=== PATIENT | female | born 1960 | race Caucasian/White ===

== ENCOUNTER 2016-12-04 10:11 | Emergency (ER) | payer BC ==
[2016-12-04 10:24] VITALS: BP 143/71
--- NOTE | 2016-12-04 11:23 | ER Document Report ---
ED General - General Chief Complaint: Skin Problem Stated Complaint: POSSIBLE CYST Time Seen by Provider: 12/04/16 11:06 Mode of Arrival: Ambulatory Information source: Patient Notes: Patient presents to the emergency department with an abscess to the left side of her posterior neck. Patient reports she has had a cyst there for years. She reports she has seen a test engineering intern about it years ago. Within the past couple of days the area has become red, swollen and more painful. Denies other symptoms such as fever vomiting diarrhea. Denies history of MRSA. Pt declines pain medication. TRAVEL OUTSIDE OF THE [place] IN LAST 30 DAYS: No - HPI Onset: Other - last few days increased pain, swelling, redness Onset/Duration: Worse Quality of pain: Achy Severity: Mild Pain Level: 1 Associated symptoms: None Exacerbated by: Denies Relieved by: Denies Similar symptoms previously: No Recently seen / treated by doctor: No - Related Data Allergies/Adverse Reactions: fexofenadine HCl [From Juliette] Allergy (Severe, Verified 12/16/13 11:16) Hives, SOB bupropion HCl [From Wellbutrin] Allergy (Unknown, Verified 12/16/13 11:16) Past Medical History - General Information source: Patient - Social History Smoking Status: Unknown if Ever Smoked Cigarette use (# per day): No Frequency of alcohol use: None Drug Abuse: None Lives with: Family Family History: Reviewed & Not Pertinent Patient has suicidal ideation: No Patient has homicidal ideation: No - Past Medical History Cardiac Medical History: Reports: Hx Hypercholesterolemia, Hx Hypertension Pulmonary Medical History: Reports: Hx Bronchitis Denies: Hx Tuberculosis Neurological Medical History: Endocrine Medical History: Reports: Hx Diabetes Mellitus Type 2 Renal/ Medical History: Denies: Hx Peritoneal Dialysis GI Medical History: Reports: Hx Gastroesophageal Reflux Disease Musculoskeltal Medical History: Reports Hx Arthritis Psychiatric Medical History: Reports: Hx Depression Past Surgical History: Reports: Hx Abdominal Surgery - GERNIA, Hx Cholecystectomy - January 2011, Hx Orthopedic Surgery - c5-c7, R wrist - Immunizations Hx Diphtheria, Pertussis, Tetanus Vaccination: No Hx Pneumococcal Vaccination: 04/07/05 Review of Systems - Review of Systems Notes: Review HPI for review of systems., All other systems negative Physical Exam - Vital signs Vitals: Temp Pulse Resp BP Pulse Ox 98.9 F 90 16 143/71 H 94 12/04/16 10:12/04/16 10:12/04/16 10:12/04/16 10:12/04/16 10:22 - Notes Notes: PHYSICAL EXAMINATION: GENERAL: Well-appearing and in no acute distress HEAD: Atraumatic, normocephalic. EYES: Pupils equal round, extraocular movements intact, sclera anicteric, conjunctiva are normal. ENT: nares patent, oropharynx clear without exudates. Moist mucous membranes. NECK: Normal range of motion, supple without lymphadenopathy LUNGS: CTAB and equal. No wheezes rales or rhonchi. HEART: Regular rate and rhythm without murmurs EXTREMITIES: Normal range of motion NEUROLOGICAL: Cranial nerves grossly intact. Normal sensory/motor exams. PSYCH: Normal mood, normal affect. SKIN: Warm, Dry, normal turgor, abscess- left posterior neck with erythema, swelling, ttp, fluctuant 3 cm oval - Abdominal Distension: No: No distension, Distended, Tympanitic, Fluid wave, Distended bladder, Other Adult front & back diagram: 1 - abscess ~ 3 cm oval with erythema, swelling, ttp Course - Re-evaluation Re-evalutation: 12/04/16 11:22 Patient instructed on plan of care. Patient instructed on medications Keflex and Septra. She verbalizes no allergies to these medications. She declined pain medication. 12/04/16 12:22 No drainage obtained from site. Pt was instructed on this. Wound culture placed into incision. Patient instructed on the importance of follow-up with her primary care provider for recheck of the site. Patient is a diabetic , she verbalized understanding. - Vital Signs Vital signs: Temp Pulse Resp BP Pulse Ox 98.9 F 90 16 143/71 H 94 12/04/16 10:12/04/16 10:12/04/16 10:12/04/16 10:22 12/04/16 10:22 Procedures - Incision and Drainage Neck Type: Simple Anesthetic type: 1% Lidocaine I&D procedure: Shurclens applied Incision Method: Incision made by scalpel Amount/type of drainage: no drainage obtained Notes: 12/04/16 12:22 t shaped incision made, area probed, no drainage obtained Discharge - Discharge Clinical Impression: Abscess, Elevated blood pressure reading Condition: Stable Disposition: HOME, SELF-CARE Instructions: Abscess ([facility]), Cephalexin ([facility]), Post Incision and Drainage, Trimethoprim-Sulfa ([facility]), Oral Narcotic Medication ([facility]) Additional Instructions: *You have been treated for an abscess with incision and drainage *Take medication as prescribed *Monitor the site for signs of increasing infection such as increasing pain, redness, swelling, warmth *Wash the site twice daily as discussed *Follow up with a primary care provider within 3 days for recheck. *Return to ED for signs of increasing infection, worsening condition, changes, needs Monitor your blood pressure. Your blood pressure was elevated today. This may be because you were anxious, in pain or because you need medication. It is important to follow up with your primary care provider for full evaluation. Prescriptions: Cephalexin [Cephalexin 250 MG Tablet] 1 tab PO QID #20 tablet Oxycodone HCl/Acetaminophen [Percocet 5-325 mg Tablet] 1 - 2 tab PO ASDIR PRN # 15 tablet PRN Reason: Sulfamethoxazole/Trimethoprim [Bactrim Ds Tablet] 1 each PO BID #20 tablet Forms: Elevated Blood Pressure Referrals: BERE CORTEZ MD [Primary Care Provider] - Follow up in 3-5 days (call today for a follow up appointment this week)
== END 2016-12-04 12:26 | disposition home or self-care (01) ==
LOC: ER 10:11
PROC: 0H94XZZ Drainage of Neck Skin, External Approach (ICD-10-PCS; principal; 2016-12-04)
DX: L02.11 Cutaneous abscess of neck (principal); E78.00 Pure hypercholesterolemia, unspecified; I10 Essential (primary) hypertension; E11.9 Type 2 diabetes mellitus without complications; K21.9 Gastro-esophageal reflux disease without esophagitis
CPT/HCPCS: 87070; 87075; 87205; 99283

== ENCOUNTER 2016-12-05 14:03 | Inpatient (IN) | payer BC ==
[2016-12-05] MEDS ORDERED: NORMAL SALINE 1000 ML 1,000 ML IV ONE ×2 (15:38→16:03)
--- NOTE | 2016-12-05 15:43 | ER Document Report ---
ED Medical Screen (RME) - General Chief Complaint: Fever Stated Complaint: FEVER Time Seen by Provider: 12/05/16 15:19 Mode of Arrival: Wheelchair Information source: Patient Notes: This is a 55-year-old female with multiple medical problems to include diabetes who presents for fever and chills. Of note she was seen in the ER yesterday for a skin abscess to her posterior neck. She had an I&D attempted but no purulence was drained. She was sent home with Keflex and Bactrim with which she reports compliance. She reports fevers and chills this morning with a temperature at home of 102.5. She has no prior history of skin infection or MRSA. I have greeted and performed a rapid initial assessment of this patient. A comprehensive ED assessment and evaluation of the patient, analysis of test results and completion of the medical decision making process will be conducted by additional ED providers. TRAVEL OUTSIDE OF THE [place] IN LAST 30 DAYS: No - Related Data Allergies/Adverse Reactions: fexofenadine HCl [From Juliette] Allergy (Severe, Verified 12/05/16 15:14) Hives, SOB bupropion HCl [From Wellbutrin] Allergy (Unknown, Verified 12/05/16 15:14) Past Medical History - Past Medical History Cardiac Medical History: Reports: Hx Hypercholesterolemia, Hx Hypertension Pulmonary Medical History: Reports: Hx Bronchitis Denies: Hx Tuberculosis Neurological Medical History: Endocrine Medical History: Reports: Hx Diabetes Mellitus Type 2 Renal/ Medical History: Denies: Hx Peritoneal Dialysis GI Medical History: Reports: Hx Gastroesophageal Reflux Disease Musculoskeltal Medical History: Reports Hx Arthritis Psychiatric Medical History: Reports: Hx Depression Past Surgical History: Reports: Hx Abdominal Surgery - GERNIA, Hx Cholecystectomy - January 2011, Hx Orthopedic Surgery - c5-c7, R wrist - Immunizations Hx Diphtheria, Pertussis, Tetanus Vaccination: No Physical Exam - General Notes: Ill-appearing, pleasant and conversant - Respiratory Respiratory status: No respiratory distress, Tachypnea Breath sounds: Normal. No: Rales, Rhonchi, Wheezing Chest palpation: Normal - Cardiovascular Rhythm: Tachycardia
[2016-12-05] MEDS ORDERED: VANCOMYCIN HCL INJ 1000 MG VIAL IV ONE (16:00)
[2016-12-05] MEDS ORDERED: PIPERACILLIN/TAZOBACTAM 3.375 GM VIAL IV ONE (16:01)
[2016-12-05] MEDS ORDERED: ACETAMINOPHEN 325 MG TABLET PO ONE (16:02)
[2016-12-05 16:27] LABS: HEMATOCRIT 36.4 % (36.0-47.0); HEMOGLOBIN 11.5 g/dL (12.0-15.5); HGB HCT DIFFERENCE -1.9; MEAN CORPUSCULAR HEMOGLOBIN 24.1 pg (27.0-33.4); MEAN CORPUSCULAR HGB CONC 31.5 g/dL (32.0-36.0); MEAN CORPUSCULAR VOLUME 77 fl (80-97); RED BLOOD COUNT 4.75 10^6/uL (3.72-5.28); RED CELL DISTRIBUTION WIDTH 15.5 % (11.5-14.0); WHITE BLOOD COUNT 11.8 10^3/uL (4.0-10.5)
--- NOTE | 2016-12-05 16:30 | RADIOLOGY REPORT (SQ) ---
EXAM DESCRIPTION: CHEST SINGLE VIEW COMPLETED DATE/TIME: 12/05/2016 4:15 pm REASON FOR STUDY: fever COMPARISON: 12/15/2014. EXAM PARAMETERS: NUMBER OF VIEWS: One view. TECHNIQUE: Single frontal radiographic view of the chest acquired. RADIATION DOSE: NA LIMITATIONS: None. FINDINGS: LUNGS AND PLEURA: Elevated right hemidiaphragm, unchanged. No opacities, masses or pneumo thorax. No pleural effusion. MEDIASTINUM AND HILAR STRUCTURES: No masses. Contour normal. HEART AND VASCULAR STRUCTURES: Heart normal in size. Normal vasculature. BONES: No acute findings. HARDWARE: Hardware in the cervical spine. OTHER: No other significant finding. IMPRESSION: NO ACUTE RADIOGRAPHIC FINDING IN THE CHEST. TECHNICAL DOCUMENTATION: JOB ID: [id number]
[2016-12-05 16:32] LABS: VENOUS BLOOD BASE EXCESS 0.7 mmol/L; VENOUS BLOOD HCO3 25.3 mmol/L (20-32); VENOUS BLOOD PCO2 40.1 mmHg (35-63); VENOUS BLOOD PH 7.42 (7.30-7.42)
[2016-12-05 16:33] LABS: PROTHROMBIN TIME 13.1 SEC (11.4-15.4)
--- NOTE | 2016-12-05 16:42 | ER Document Report ---
ED Fever - General Chief Complaint: Fever Stated Complaint: FEVER Time Seen by Provider: 12/05/16 15:19 Mode of Arrival: Wheelchair Notes: The patient is a 55-year-old female, past medical history diabetes, presents with increasing redness and fever on her left upper back. She was seen in the emergency room yesterday for an abscess and an I&D was attempted with only bloody return. Started on Bactrim and Keflex and said that she was taking them. She denies shortness of breath, cough, urinary symptoms, abdominal pain, flank pain, chest pain or vomiting. TRAVEL OUTSIDE OF THE [place] IN LAST 30 DAYS: No - Related Data Allergies/Adverse Reactions: fexofenadine HCl [From Juliette] Allergy (Severe, Verified 12/05/16 15:14) Hives, SOB bupropion HCl [From Wellbutrin] Allergy (Unknown, Verified 12/05/16 15:14) Past Medical History - General Information source: Patient - Social History Smoking Status: Never Smoker Family History: Reviewed & Not Pertinent Patient has suicidal ideation: No Patient has homicidal ideation: No - Past Medical History Cardiac Medical History: Reports: Hx Hypercholesterolemia, Hx Hypertension Pulmonary Medical History: Reports: Hx Bronchitis Denies: Hx Tuberculosis Neurological Medical History: Endocrine Medical History: Reports: Hx Diabetes Mellitus Type 2 Renal/ Medical History: Denies: Hx Peritoneal Dialysis GI Medical History: Reports: Hx Gastroesophageal Reflux Disease Musculoskeltal Medical History: Reports Hx Arthritis Psychiatric Medical History: Reports: Hx Depression Past Surgical History: Reports: Hx Abdominal Surgery - GERNIA, Hx Cholecystectomy - January 2011, Hx Orthopedic Surgery - c5-c7, R wrist - Immunizations Hx Diphtheria, Pertussis, Tetanus Vaccination: No Hx Pneumococcal Vaccination: 04/07/05 Review of Systems - Review of Systems Notes: REVIEW OF SYSTEMS: CONSTITUTIONAL: +fevers, +chills EENT: -eye pain, -difficulty swallowing, -nasal congestion CARDIOVASCULAR:-chest pain, -syncope. RESPIRATORY: -cough, -SOB GASTROINTESTINAL: -abdominal pain, +nausea, -vomiting, -diarrhea GENITOURINARY: -dysuria, -hematuria MUSCULOSKELETAL: -back pain, -neck pain SKIN: +rash on back HEMATOLOGIC: -easy bruising or bleeding. LYMPHATIC: -swollen, enlarged glands. NEUROLOGICAL: -altered mental status or loss of consciousness, -headache, - neurologic symptoms PSYCHIATRIC: -anxiety, -depression. ALL OTHER SYSTEMS REVIEWED AND NEGATIVE. Physical Exam - Vital signs Vitals: Resp BP Pulse Ox 18 130/74 H 94 12/05/16 16:31 12/05/16 16:31 12/05/16 16:31 - Notes Notes: PHYSICAL EXAMINATION: GENERAL: Ill-appearing HEAD: Atraumatic, normocephalic. EYES: Pupils equal round and reactive to light, extraocular movements intact, sclera anicteric, conjunctiva are normal. ENT: nares patent, oropharynx clear without exudates. Moist mucous membranes. NECK: Normal range of motion, supple without lymphadenopathy LUNGS: Breath sounds clear to auscultation bilaterally and equal. No wheezes rales or rhonchi. HEART: Regular rhythm, tachycardia ABDOMEN: Soft, nontender, normoactive bowel sounds. No guarding, no rebound. No masses appreciated. EXTREMITIES: Normal range of motion, no pitting or edema. No cyanosis. NEUROLOGICAL: Cranial nerves grossly intact. Normal speech, normal gait. Normal sensory and motor exams. PSYCH: Normal mood, normal affect. SKIN: 1 cm abscess over left upper back with 7 cm surrounding erythema Course - Re-evaluation Re-evalutation: Patient failed outpatient antibiotics for her cellulitis and is now septic. Her blood pressure is remaining in the 130's/70's and her lactate is only 2.3. Broad-spectrum antibiotics started. Bedside US shows 1cm x1cm abscess with surrounding soft-tissue cobblestoning, indicative of cellulitis. Offered patient another I&D, but she is declining at this time due to the small size of the abscess. Pt requires Inpatient Admission for IV antibiotics, IVF and further evaluation and treatment. 12/05/16 17:[address] Fields and will admit patient as Inpatient to [facility]. - Vital Signs Vital signs: Temp Pulse Resp BP Pulse Ox 16 134/70 H 95 12/05/16 17:01 12/05/16 17:01 12/05/16 17:01 - Laboratory Result Diagrams: 12/05/16 16:06 12/05/16 16:06 Laboratory results interpreted by me: 12/05/16 12/05/16 12/05/16 16:06 16:06 16:06 WBC 11.8 H Hgb 11.5 L MCV 77 L MCH 24.1 L MCHC 31.5 L RDW 15.5 H Seg Neuts % (Manual) 90 H Band Neutrophils % 2 L Lymphocytes % (Manual) 4 L Monocytes % (Manual) 2 L Abs Neuts (Manual) 10.9 H Glucose 197 H Lactic Acid 2.3 H - Diagnostic Test Radiology reviewed: Image reviewed, Reports reviewed Radiology results interpreted by me: CXR: NAD Discharge - Discharge Clinical Impression: Cellulitis and abscess of trunk Sepsis Qualifiers: Sepsis type: sepsis due to unspecified organism Qualified Code(s): A41.9 - Sepsis, unspecified organism Condition: Serious Disposition: ADMITTED INPATIENT Admitting Provider: Mary Beth Fields Unit Admitted: Telemetry
[2016-12-05 16:49] LABS: BAND NEUTROPHILS % (MANUAL) 2 % (3-5); BASOPHILS % (MANUAL) 0 % (0-2); EOSINOPHILS % (MANUAL) 2 % (0-6); LYMPHOCYTES % (MANUAL) 4 % (13-45); TOTAL CELLS COUNTED 100; TOXIC VACUOLATION PRESENT
[2016-12-05 16:50] LABS: ANISOCYTOSIS 1+; HYPOCHROMASIA SLIGHT; MICROCYTOSIS 1+; POLYCHROMASIA SLIGHT; ROULEAUX 1+
[2016-12-05 16:51] LABS: ALANINE AMINOTRANSFERASE 40 U/L (9-52); ALBUMIN 4.2 g/dL (3.5-5.0); ALKALINE PHOSPHATASE 106 U/L (38-126); ANION GAP 11 (5-19); ASPARTATE AMINO TRANSFERASE 32 U/L (14-36); BILIRUBIN,DIRECT 0.3 mg/dL (0.0-0.4); BILIRUBIN,TOTAL 0.7 mg/dL (0.2-1.3); BLOOD UREA NITROGEN 14 mg/dL (7-20); CALCIUM 9.5 mg/dL (8.4-10.2); CARBON DIOXIDE 25 mmol/L (22-30); CHLORIDE 104 mmol/L (98-107); CREATININE RESULT 0.78 mg/dL (0.52-1.25); GLUCOSE 197 mg/dL (75-110); POTASSIUM 4.4 mmol/L (3.6-5.0); SODIUM 140.3 mmol/L (137-145); TOTAL PROTEIN 7.5 g/dL (6.3-8.2)
[2016-12-05] MEDS ORDERED: IBUPROFEN 600 MG TABLET PO ONE (17:33)
[2016-12-05 18:03] LABS: APPEARANCE,URINE CLEAR; BILIRUBIN,URINE NEGATIVE (NEGATIVE); GLUCOSE, URINE >=500 mg/dL (NEGATIVE); KETONES,URINE NEGATIVE (NEGATIVE); LEUKOCYTE ESTERASE,URINE NEGATIVE (NEGATIVE); NITRITE,URINE NEGATIVE (NEGATIVE); PROTEIN,URINE NEGATIVE (NEGATIVE); URINE SPECIFIC GRAVITY 1.043; UROBILINOGEN,URINE NEGATIVE mg/dL (<2.0)
[2016-12-05] MEDS ORDERED: NORMAL SALINE 1000 ML 1,000 ML IV PRN (18:22)
[2016-12-05] MEDS ORDERED: ONDANSETRON HCL INJ/PF 4 MG/2 ML SDV IV PRN (18:22)
[2016-12-05] MEDS ORDERED: PIPERACILLIN/TAZOBACTAM 3.375 GM VIAL IV SCH (18:30)
[2016-12-05] MEDS ORDERED: DEXTROSE 50%-WATER 25 GM/50 ML DISP.SYRIN IV PRN ×2 (18:30)
[2016-12-05] MEDS ORDERED: DEXTROSE 40% GEL 15 GM TUBE PO PRN ×2 (18:30)
[2016-12-05] MEDS ORDERED: GLUCAGON,HUMAN RECOMB 1 MG INJ IM PRN (18:30)
[2016-12-05] MEDS ORDERED: (PENDING PHARMACY ID) (Exenatide Microspheres [Bydureon Pen] 2 MG) SQ SCH (18:45)
--- NOTE | 2016-12-05 18:46 | PDOC H&P ---
History of Present Illness Admission Date/PCP: 12/05/16 17:41 BERE CORTEZ MD Patient complains of: Fever and chills History of Present Illness: ISABEL RICK is a 55 year old female, with history of diabetes presents to the hospital because of fever and chills of 1 day duration. Patient noted and knot on the back of her neck close to the shoulder on the left side about 4-5 days ago with associated pain and discomfort. 2 days prior to admission the size of the knot or induration increased. Patient was concerned therefore she went to the emergency room yesterday where an incision and drainage was performed but no significant fluid was obtained. The patient was discharged home on Bactrim and Keflex and upon waking up this morning the patient has more discomfort pain and swelling with associated chills and fever. The patient went back to the emergency room, lactic acid level was elevated, temperature of 102.1, redness reportedly increased. Patient was given vancomycin and Zosyn and was referred for admission. Patient denies any chest congestion or coughing, no diarrhea, no vaginal discharge or bleeding, no dysuria urgency or frequency. No other rash reported. Past Medical History Cardiac Medical History: Reports: Hyperlipidema, Hypertension Pulmonary Medical History: Reports: Bronchitis Denies: Tuberculosis Neurological Medical History: Endocrine Medical History: Reports: Diabetes Mellitus Type 2 GI Medical History: Reports: Gastroesophageal Reflux Disease Musculoskeltal Medical History: Reports: Arthritis Psychiatric Medical History: Reports: Depression Hematology: Denies: Anemia Past Surgical History Past Surgical History: Reports: Cholecystectomy - January 2011, Orthopedic Surgery - c5-c7, R wrist, low back surgery for discitis Social History Information Source: Patient Smoking Status: Never Smoker Frequency of Alcohol Use: None Hx Recreational Drug Use: No Drugs: None Hx Prescription Drug Abuse: No - Advance Directive Resuscitation Status: Full Code Family History Family History: CAD, DM, Hypertension Parental Family History Reviewed: Yes Children Family History Reviewed: Yes Sibling(s) Family History Reviewed.: Yes Medication/Allergy Home Medications: Amlodipine Besylate [Norvasc 5 mg Tablet] 5 mg PO DAILY 07/31/11 Metformin HCl [Glucophage 500 Mg Tablet] 1,000 mg PO BID 07/31/11 Simvastatin [Zocor] 20 mg PO QHS 07/31/11 Metoprolol Succinate [Toprol Xl 25 mg Tab.sr] 25 mg PO BID 08/01/11 Losartan Potassium [Cozaar 25 Mg Tablet] 100 mg PO DAILY 02/05/12 Ranitidine HCl [Zantac 300 mg Tablet] 300 mg PO QHS 02/05/12 Aripiprazole [Abilify 10 mg Tablet] 10 mg PO DAILY 12/05/16 Budesonide/Formoterol Fumarate [Symbicort Hfa 160-4.5 Mcg Inhaler 6 gm] 2 puff IH Q12 12/05/16 Canagliflozin [Invokana] 300 mg PO DAILY 12/05/16 Exenatide Microspheres [Bydureon Pen] 2 mg SQ Q7D 12/05/16 Glimepiride [Amaryl 4 mg Tablet] 4 mg PO BID 12/05/16 Insulin Degludec [Tresiba Flextouch U-100] 28 unit SQ QHS 12/05/16 Levalbuterol Tartrate [Xopenex Hfa] 1 - 2 puff IH 6XD PRN 12/05/16 Omeprazole 20 mg PO DAILY 12/05/16 Vilazodone Hydrochloride [Viibryd] 40 mg PO DAILY 12/05/16 Allergies/Adverse Reactions: fexofenadine HCl [From Juliette] Allergy (Severe, Verified 12/05/16 15:14) Hives, SOB bupropion HCl [From Wellbutrin] Allergy (Unknown, Verified 12/05/16 15:14) Review of Systems Constitutional: PRESENT: chills, fatigue, fever(s), weakness - Generalized. ABSENT: headache(s), weight gain, weight loss Eyes: ABSENT: visual disturbances Ears: ABSENT: hearing changes Nose, Mouth, and Throat: ABSENT: mouth pain, sore throat Cardiovascular: ABSENT: chest pain, dyspnea on exertion, edema, orthropnea, palpitations Respiratory: ABSENT: cough, dyspnea, hemoptysis, sputum Gastrointestinal: ABSENT: abdominal pain, constipation, diarrhea, hematemesis, hematochezia, melena, nausea, vomiting Genitourinary: ABSENT: difficulty urinating, dysuria, hematuria Musculoskeletal: ABSENT: joint swelling Integumentary: PRESENT: rash - As stated above, other - Patient had redness of the skin from sunburn on both upper extremities with some mild exfoliation. ABSENT: wounds Neurological: ABSENT: abnormal gait, abnormal speech, confusion, dizziness, focal weakness, syncope Psychiatric: ABSENT: anxiety, depression, homidical ideation, suicidal ideation Endocrine: ABSENT: cold intolerance, heat intolerance, polydipsia, polyphagia, polyuria Hematologic/Lymphatic: ABSENT: easy bleeding, easy bruising Physical Exam Vital Signs: Temp Pulse Resp BP Pulse Ox 101.1 F H 142 H 19 145/55 H 93 12/05/16 18:23 12/05/16 14:40 12/05/16 18:01 12/05/16 18:01 12/05/16 18:01 General appearance: PRESENT: no acute distress, cooperative, morbidly obese Head exam: PRESENT: atraumatic, normocephalic Eye exam: PRESENT: conjunctiva pink, EOMI, PERRLA. ABSENT: scleral icterus Ear exam: PRESENT: normal external ear exam Mouth exam: PRESENT: moist, neck supple, tongue midline Throat exam: ABSENT: post pharyngeal erythema, tonsillar erythema Neck exam: ABSENT: carotid bruit, JVD, lymphadenopathy, thyromegaly Respiratory exam: PRESENT: clear to auscultation edilberto, unlabored. ABSENT: rales , rhonchi, wheezes Cardiovascular exam: PRESENT: RRR, +S1, +S2, tachycardia. ABSENT: diastolic murmur, rubs, systolic murmur Pulses: PRESENT: normal dorsalis pedis pul Vascular exam: PRESENT: normal capillary refill GI/Abdominal exam: PRESENT: normal bowel sounds, soft. ABSENT: distended, guarding, mass, organolmegaly, rebound, tenderness Rectal exam: PRESENT: deferred Extremities exam: PRESENT: full ROM, other - Trace pretibial edema. ABSENT: calf tenderness, clubbing Neurological exam: PRESENT: alert, awake, oriented to person, oriented to place , oriented to time, oriented to situation Psychiatric exam: PRESENT: appropriate affect, normal mood. ABSENT: homicidal ideation, suicidal ideation Skin exam: PRESENT: dry, erythema - At the back on the base of the neck, rash - On the base of the neck on the back, warm, other - There is a golf ball size induration with mild tenderness noted on the back of the neck and the base that is mildly tender to touch. ABSENT: cyanosis Results Laboratory Results: 12/05/16 17:42 Urine Color YELLOW Urine Appearance CLEAR Urine pH 5.0 Ur Specific [place] 1.043 Urine Protein NEGATIVE Urine Glucose (UA) >=500 H Urine Ketones NEGATIVE Urine Blood NEGATIVE Urine Nitrite NEGATIVE Ur Leukocyte Esterase NEGATIVE Urine WBC (Auto) 0 Urine RBC (Auto) 0 Impressions: Chest X-Ray 12/05/16 15:40 IMPRESSION: NO ACUTE RADIOGRAPHIC FINDING IN THE CHEST. Assessment & Plan - Diagnosis (1) Cellulitis and abscess of trunk Is this a current diagnosis for this admission?: Yes (2) Sepsis Qualifiers: Sepsis type: sepsis due to unspecified organism Qualified Code(s): A41.9 - Sepsis, unspecified organism Is this a current diagnosis for this admission?: Yes (3) Second degree sunburn Is this a current diagnosis for this admission?: Yes (4) Diabetes mellitus type 2 in obese Is this a current diagnosis for this admission?: Yes (5) Obstructive sleep apnea Is this a current diagnosis for this admission?: Yes (6) Essential hypertension Is this a current diagnosis for this admission?: Yes (7) GERD (gastroesophageal reflux disease) Qualifiers: Esophagitis presence: without esophagitis Qualified Code(s): K21.9 - Gastro-esophageal reflux disease without esophagitis Is this a current diagnosis for this admission?: Yes (8) Mild intermittent asthma Qualifiers: Asthma complication type: uncomplicated Qualified Code(s): J45.20 - Mild intermittent asthma, uncomplicated Is this a current diagnosis for this admission?: Yes (9) Depression Qualifiers: Depression Type: unspecified Qualified Code(s): F32.9 - Major depressive disorder, single episode, unspecified Is this a current diagnosis for this admission?: Yes - Time Time Spent: 50 to 70 Minutes - Inpatient Certification Based on my medical assessment, after consideration of the patient's comorbidities, presenting symptoms, or acuity I expect that the services needed warrant INPATIENT care.: Yes I certify that my determination is in accordance with my understanding of Medicare's requirements for reasonable and necessary INPATIENT services [42 CFR 412.3e].: Yes Medical Necessity: Need Close Monitoring Due to Risk of Patient Decompensation, Need For IV Fluids, Need for IV Antibiotics, Risk of Complication if Not Cared For in Hospital Post Hospital Care: D/C Credit Risk Specialist Documentation - Plan Summary Plan Summary: The patient will be admitted to telemetry. Blood and urine cultures will be sent. We will consult surgery for evaluation of the patient's abscess and induration. In the meantime I will begin intravenous vancomycin and intravenous Zosyn. I will put the patient on sliding scale insulin. Gentle IV hydration will likewise be started. DVT prophylaxis with Lovenox will be placed. Further testing depends on the initial evaluation as outlined above.
[2016-12-05] MEDS ORDERED: ENOXAPARIN SODIUM INJ 40 MG/0.4 ML DISP.SYRIN SUBCUT ONE (19:30)
[2016-12-05 19:40] LABS: THYROID STIMULATING HORMONE 2.29 uIU/mL (0.47-4.68)
[2016-12-05] MEDS ORDERED: LIDOCAINE 2% INJ-PF (100 MG/5 ML) SYRINGE ONE ×2 (20:45→20:48)
[2016-12-05] MEDS ORDERED: LIDOCAINE 1% INJ-PF (10 MG/ML) 30 ML SDV INJ PRN (20:54)
[2016-12-05] MEDS ORDERED: HYDROMORPHONE HCL INJ/PF 2 MG/ML AMPULE ONE (21:08)
[2016-12-05] MEDS ORDERED: HYDROMORPHONE HCL INJ/PF 2 MG/ML AMPULE IV ONE (21:15)
[2016-12-05] MEDS ORDERED: OXYCODONE-ACETAMINOPHEN 5-325 MG TABLET PO PRN (21:26)
[2016-12-05] MEDS ORDERED: METOPROLOL SUCCINATE 25 MG TAB.SR.24H PO SCH (22:00)
[2016-12-05] MEDS: SIMVASTATIN 10 MG TABLET PO SCH (23:00)
[2016-12-05] MEDS: BUDESONIDE/FORMOTEROL 160-4.5 MCG 60 PUFF/6 GM MDI IH SCH (23:02)
--- NOTE | 2016-12-05 23:09 | OPERATIVE REPORT E ---
Operative Report NAME: ISABEL RICK : 1960 AGE: 55Y DATE OF SURGERY: 12/05/2016 ROOM: 405 PREOPERATIVE DIAGNOSIS: Infected cyst of the left neck. POSTOPERATIVE DIAGNOSIS: Infected cyst of the left neck with abscess. OPERATION: Incision and drainage of abscess, left neck cyst. SURGEON: ALMA ESTES M.D. ANESTHESIA: Local. INDICATION: This is a 55-year-old diabetic female who had infected cyst attempted to be drained in the ER last night. Today she came back with more pains and fever. She is a diabetic. On initial examination, there is a small amount of purulent material coming out of the cystic area. The area roughly measured about 3 cm in diameter and very tender. DESCRIPTION OF PROCEDURE: The patient was in the right lateral decubitus semi-erect with the left neck extended and subsequently prepped and draped in the usual sterile fashion. Local anesthesia infiltrated around the cystic area that is infected using about 10 mL of 1% Xylocaine. The patient just had 1 mg of IV Dilaudid. An incision and drainage was made over the cyst and a lot of purulent material extruded out. About a 2 cm incision was made. Specimen for cultures were obtained. The cystic area was then partially debrided of necrotic and cystic contents using scissors. The cystic area roughly measured about 2.5 cm in diameter. The cystic area was subsequently packed with 1/4-inch Iodoform gauze. Pressure dressing was applied. Hemostasis was obtained. Sterile dressings were placed. The patient tolerated the procedure well. DICTATING PHYSICIAN: ALMA ESTES M.D. [id number] PHY#: [id number] ID: [id number] JOB#: [id number] ACCT: [id number] cc:ALMA ESTES M.D. >
[2016-12-06] MEDS: ACETAMINOPHEN 325 MG TABLET PO PRN ×2 (01:07→19:59)
[2016-12-06] MEDS: PIPERACILLIN SODIUM/TAZOBACTAM 3.375 GM in NORMAL SALINE 100 ML IV SCH ×3 (01:13→18:12)
[2016-12-06 05:11] LABS: HEMATOCRIT 33.6 % (36.0-47.0); HEMOGLOBIN 10.8 g/dL (12.0-15.5); HGB HCT DIFFERENCE -1.2; MEAN CORPUSCULAR HEMOGLOBIN 24.6 pg (27.0-33.4); MEAN CORPUSCULAR HGB CONC 32.1 g/dL (32.0-36.0); MEAN CORPUSCULAR VOLUME 77 fl (80-97); RED BLOOD COUNT 4.38 10^6/uL (3.72-5.28); RED CELL DISTRIBUTION WIDTH 15.9 % (11.5-14.0); WHITE BLOOD COUNT 7.4 10^3/uL (4.0-10.5)
[2016-12-06 05:25] LABS: ANION GAP 9 (5-19); BLOOD UREA NITROGEN 11 mg/dL (7-20); CALCIUM 8.5 mg/dL (8.4-10.2); CARBON DIOXIDE 23 mmol/L (22-30); CHLORIDE 111 mmol/L (98-107); CREATININE RESULT 0.75 mg/dL (0.52-1.25); GLUCOSE 146 mg/dL (75-110); POTASSIUM 3.7 mmol/L (3.6-5.0); SODIUM 143.1 mmol/L (137-145)
[2016-12-06 05:38] LABS: BAND NEUTROPHILS % (MANUAL) 2 % (3-5); BASOPHILS % (MANUAL) 0 % (0-2); EOSINOPHILS % (MANUAL) 1 % (0-6); LYMPHOCYTES % (MANUAL) 3 % (13-45); TOTAL CELLS COUNTED 100
[2016-12-06 05:39] LABS: ANISOCYTOSIS 1+; TOXIC GRANULATION SLIGHT
[2016-12-06] MEDS: LANSOPRAZOLE 30 MG TAB.RAP.DR PO SCH (06:09)
[2016-12-06] MEDS ORDERED: ONDANSETRON HCL INJ/PF 4 MG/2 ML SDV IV PRN (07:55)
[2016-12-06] MEDS: GLIMEPIRIDE 4 MG TABLET PO SCH ×2 (08:28→16:19)
[2016-12-06] MEDS: ENOXAPARIN SODIUM INJ 40 MG/0.4 ML DISP.SYRIN SUBCUT SCH (08:28)
[2016-12-06] MEDS ORDERED: NORMAL SALINE 1000 ML 1,000 ML IV PRN (09:29)
--- NOTE | 2016-12-06 09:33 | PDOC PROGRESS REPORT ---
Subjective Progress Note for:: 12/06/16 Subjective:: Patient feels better this morning but still with fever. Pain on the wound side is better. Denies any diarrhea. No chest pain or shortness of breath. No diaphoresis nausea or vomiting. Physical Exam Vital Signs: Temp Pulse Resp BP Pulse Ox 100.4 F 129 H 20 167/80 H 98 12/06/16 07:37 12/06/16 07:37 12/06/16 07:37 12/06/16 07:37 12/06/16 07:37 Intake & Output 12/05/16 12/06/16 12/07/16 06:59 06:59 06:59 Intake Total 720 Output Total 701 Balance 19 Weight 144.8 kg General appearance: PRESENT: no acute distress, cooperative, obese Head exam: PRESENT: normocephalic Eye exam: PRESENT: EOMI Mouth exam: PRESENT: moist, neck supple Neck exam: ABSENT: JVD Respiratory exam: PRESENT: clear to auscultation edilberto. ABSENT: rhonchi, wheezes Cardiovascular exam: PRESENT: RRR. ABSENT: gallop GI/Abdominal exam: PRESENT: normal bowel sounds, soft. ABSENT: distended - Obese Extremities exam: PRESENT: other - Trace lower extremity edema bilateral Neurological exam: PRESENT: alert, awake, oriented to situation Skin exam: PRESENT: dry, warm, other - Redness on the abscess site on the base of the neck less, there is a drain placed noted, no purulent drainage present nor foul-smelling drainage present at this time.. ABSENT: cyanosis Results Laboratory Results: 12/06/16 04:21 12/06/16 04:21 12/05/16 12/06/16 12/06/16 20:38 04:21 04:21 WBC 7.4 RBC 4.38 Hgb 10.8 L Hct 33.6 L MCV 77 L MCH 24.6 L MCHC 32.1 RDW 15.9 H Plt Count 164 Seg Neutrophils % Not Reportable Lymphocytes % Not Reportable Monocytes % Not Reportable Eosinophils % Not Reportable Basophils % Not Reportable Absolute Neutrophils Not Reportable Absolute Lymphocytes Not Reportable Absolute Monocytes Not Reportable Absolute Eosinophils Not Reportable Absolute Basophils Not Reportable Sodium 143.1 Potassium 3.7 Chloride 111 H Carbon Dioxide 23 Anion Gap 9 BUN 11 Creatinine 0.75 Est GFR ( Amer) > 60 Est GFR (Non-Af Amer) > 60 Glucose 146 H Lactic Acid 2.2 H Calcium 8.5 Impressions: Chest X-Ray 12/05/16 15:40 IMPRESSION: NO ACUTE RADIOGRAPHIC FINDING IN THE CHEST. Assessment & Plan - Diagnosis (1) Cellulitis and abscess of trunk Is this a current diagnosis for this admission?: Yes (2) Sepsis Qualifiers: Sepsis type: sepsis due to unspecified organism Qualified Code(s): A41.9 - Sepsis, unspecified organism Is this a current diagnosis for this admission?: Yes (3) Second degree sunburn Is this a current diagnosis for this admission?: Yes (4) Diabetes mellitus type 2 in obese Is this a current diagnosis for this admission?: Yes (5) Obstructive sleep apnea Is this a current diagnosis for this admission?: Yes (6) Essential hypertension Is this a current diagnosis for this admission?: Yes (7) GERD (gastroesophageal reflux disease) Qualifiers: Esophagitis presence: without esophagitis Qualified Code(s): K21.9 - Gastro-esophageal reflux disease without esophagitis Is this a current diagnosis for this admission?: Yes (8) Mild intermittent asthma Qualifiers: Asthma complication type: uncomplicated Qualified Code(s): J45.20 - Mild intermittent asthma, uncomplicated Is this a current diagnosis for this admission?: Yes (9) Depression Qualifiers: Depression Type: unspecified Qualified Code(s): F32.9 - Major depressive disorder, single episode, unspecified Is this a current diagnosis for this admission?: Yes - Time Time Spent with patient: 25-34 minutes - Plan Summary Plan Summary: Continue current antibiotics. Follow cultures. Patient remains tachycardic likely secondary to fever. blood pressure elevated as well. We will increase the patient's metoprolol, continue her Norvasc. Decrease intravenous fluids. Monitor hematocrit. If patient stable by the morning possibly can be discharged home. Appreciate surgery help.
--- NOTE | 2016-12-06 09:57 | EKG REPORT ---
SEVERITY:- ABNORMAL ECG - SINUS TACHYCARDIA LAD, CONSIDER LEFT ANTERIOR FASCICULAR BLOCK BORDERLINE T WAVE ABNORMALITIES : Confirmed by: Susanna Saucedo 06-Dec-2016 09:55:59
[2016-12-06] MEDS ORDERED: VANCOMYCIN HCL INJ 1000 MG VIAL IV SCH (10:00)
[2016-12-06] MEDS ORDERED: GLIMEPIRIDE 4 MG TABLET PO SCH (10:00)
[2016-12-06] MEDS ORDERED: LOSARTAN POTASSIUM 25 MG TABLET PO SCH (10:00)
[2016-12-06] MEDS ORDERED: (PENDING PHARMACY ID) (Canagliflozin [Invokana] 300 MG) PO SCH (10:00)
[2016-12-06] MEDS ORDERED: VILAZODONE HYDROCHLORIDE 40 MG PO SCH (10:00)
[2016-12-06] MEDS ORDERED: (PENDING PHARMACY ID) (Aripiprazole [Abilify 10 Mg Tablet] 10 MG) PO SCH (10:00)
[2016-12-06] MEDS ORDERED: AMLODIPINE BESYLATE 5 MG TABLET PO SCH (10:00)
[2016-12-06] MEDS: DOCUSATE SODIUM 100 MG CAPSULE PO SCH ×2 (10:06→18:11)
[2016-12-06] MEDS: LOSARTAN POTASSIUM 50 MG TABLET PO SCH (10:06)
[2016-12-06] MEDS: METOPROLOL SUCCINATE 50 MG TAB.SR.24H PO SCH ×2 (10:06→21:51)
[2016-12-06] MEDS: ARIPIPRAZOLE 5 MG TABLET PO SCH (10:07)
[2016-12-06] MEDS: BUDESONIDE/FORMOTEROL 160-4.5 MCG 60 PUFF/6 GM MDI IH SCH ×2 (10:09→21:51)
[2016-12-06] MEDS: VANCOMYCIN HCL 1,500 MG in DEXTROSE 5%-WATER 250 ML IV SCH ×2 (11:31→21:51)
--- NOTE | 2016-12-06 12:48 | PROGRESS NOTE E ---
Progress Note NAME: ISABEL RICK : 1960 AGE: 55Y DATE: 12/06/2016 ROOM: 405 SUBJECTIVE: She is postop day #1 post I and D and debridement of infected cyst on the left neck. Patient feels a lot better post I and D. She denies any more pressure at that site. The packing is in place and no active bleeding noted. PLAN: Continue with IV antibiotics. I will discontinue the packing tomorrow and patient may be discharged from surgical viewpoint. DICTATING PHYSICIAN: ALMA ESTES M.D. [id number] PHY#: [id number] ID: [id number] JOB#: [id number] ACCT: [id number] cc: >
[2016-12-06] MEDS: SIMVASTATIN 10 MG TABLET PO SCH (21:51)
[2016-12-07] MEDS: PIPERACILLIN SODIUM/TAZOBACTAM 3.375 GM in NORMAL SALINE 100 ML IV SCH ×3 (02:43→20:51)
[2016-12-07] MEDS: LANSOPRAZOLE 30 MG TAB.RAP.DR PO SCH (06:05)
[2016-12-07 06:25] LABS: HEMATOCRIT 33.2 % (36.0-47.0); HEMOGLOBIN 10.5 g/dL (12.0-15.5); HGB HCT DIFFERENCE -1.7; MEAN CORPUSCULAR HEMOGLOBIN 24.3 pg (27.0-33.4); MEAN CORPUSCULAR HGB CONC 31.7 g/dL (32.0-36.0); MEAN CORPUSCULAR VOLUME 77 fl (80-97); RED BLOOD COUNT 4.32 10^6/uL (3.72-5.28); RED CELL DISTRIBUTION WIDTH 15.7 % (11.5-14.0); WHITE BLOOD COUNT 6.5 10^3/uL (4.0-10.5)
[2016-12-07] MEDS: ENOXAPARIN SODIUM INJ 40 MG/0.4 ML DISP.SYRIN SUBCUT SCH (08:39)
[2016-12-07] MEDS: GLIMEPIRIDE 4 MG TABLET PO SCH ×2 (08:39→16:15)
[2016-12-07] MEDS: BUDESONIDE/FORMOTEROL 160-4.5 MCG 60 PUFF/6 GM MDI IH SCH ×2 (10:05→21:20)
[2016-12-07] MEDS: DOCUSATE SODIUM 100 MG CAPSULE PO SCH ×2 (10:05→18:38)
[2016-12-07] MEDS: LOSARTAN POTASSIUM 50 MG TABLET PO SCH (10:05)
[2016-12-07] MEDS: ARIPIPRAZOLE 5 MG TABLET PO SCH (10:05)
[2016-12-07] MEDS: METOPROLOL SUCCINATE 50 MG TAB.SR.24H PO SCH ×2 (10:56→21:20)
--- NOTE | 2016-12-07 11:05 | PDOC PROGRESS REPORT ---
Subjective Progress Note for:: 12/07/16 Subjective:: Patient feels better this morning but still with fever last night. Pain on the wound side is better and pressure is less. Denies any diarrhea. No chest pain or shortness of breath. No diaphoresis, nausea or vomiting. No respiratory distress reported. Physical Exam Vital Signs: Temp Pulse Resp BP Pulse Ox 98.8 F 108 H 18 151/77 H 97 12/07/16 07:34 12/07/16 07:34 12/07/16 07:34 12/07/16 07:34 12/07/16 07:34 Intake & Output 12/06/16 12/07/16 12/08/16 06:59 06:59 06:59 Intake Total 720 590 Output Total 701 2050 Balance 19 -1460 Weight 144.8 kg 146.6 kg General appearance: PRESENT: no acute distress, cooperative, morbidly obese Head exam: PRESENT: normocephalic Eye exam: PRESENT: EOMI Mouth exam: PRESENT: moist, neck supple Neck exam: ABSENT: JVD Respiratory exam: PRESENT: clear to auscultation edilberto. ABSENT: rhonchi, wheezes Cardiovascular exam: PRESENT: RRR, tachycardia - Slightly but improved GI/Abdominal exam: PRESENT: normal bowel sounds, soft. ABSENT: distended - Obese, tenderness Extremities exam: PRESENT: other - Trace pretibial edema Neurological exam: PRESENT: alert, awake, oriented to person, oriented to place , oriented to time, oriented to situation Skin exam: PRESENT: dry, warm. ABSENT: cyanosis Results Laboratory Results: 12/07/16 05:54 12/06/16 04:21 12/07/16 05:54 WBC 6.5 RBC 4.32 Hgb 10.5 L Hct 33.2 L MCV 77 L MCH 24.3 L MCHC 31.7 L RDW 15.7 H Plt Count 158 Impressions: Chest X-Ray 12/05/16 15:40 IMPRESSION: NO ACUTE RADIOGRAPHIC FINDING IN THE CHEST. Assessment & Plan - Diagnosis (1) Cellulitis and abscess of trunk Is this a current diagnosis for this admission?: Yes (2) Sepsis Qualifiers: Sepsis type: sepsis due to unspecified organism Qualified Code(s): A41.9 - Sepsis, unspecified organism Is this a current diagnosis for this admission?: Yes (3) Second degree sunburn Is this a current diagnosis for this admission?: Yes (4) Diabetes mellitus type 2 in obese Is this a current diagnosis for this admission?: Yes (5) Obstructive sleep apnea Is this a current diagnosis for this admission?: Yes (6) Essential hypertension Is this a current diagnosis for this admission?: Yes (7) GERD (gastroesophageal reflux disease) Qualifiers: Esophagitis presence: without esophagitis Qualified Code(s): K21.9 - Gastro-esophageal reflux disease without esophagitis Is this a current diagnosis for this admission?: Yes (8) Mild intermittent asthma Qualifiers: Asthma complication type: uncomplicated Qualified Code(s): J45.20 - Mild intermittent asthma, uncomplicated Is this a current diagnosis for this admission?: Yes (9) Depression Qualifiers: Depression Type: unspecified Qualified Code(s): F32.9 - Major depressive disorder, single episode, unspecified Is this a current diagnosis for this admission?: Yes - Time Time Spent with patient: 25-34 minutes - Continue current antibiotic and IV hydration. I am going to increase the metoprolol. Discontinue Norvasc. Follow cultures. Possibility of just contamination. Continue supportive care.
[2016-12-07] MEDS: VANCOMYCIN HCL 1,500 MG in DEXTROSE 5%-WATER 250 ML IV SCH ×2 (11:28→19:52)
[2016-12-07 11:57] LABS: CREATININE RESULT 0.67 mg/dL (0.52-1.25)
[2016-12-07] MEDS: ACETAMINOPHEN 325 MG TABLET PO PRN ×2 (16:14→21:20)
--- NOTE | 2016-12-07 18:56 | PDOC PROGRESS REPORT ---
Subjective Progress Note for:: 12/07/16 Subjective:: Patient is without complaints. Physical Exam Vital Signs: Temp Pulse Resp BP Pulse Ox 99.3 F 116 H 24 H 149/83 H 98 12/07/16 16:00 12/07/16 16:00 12/07/16 16:00 12/07/16 16:00 12/07/16 16:00 Intake & Output 12/06/16 12/07/16 12/08/16 06:59 06:59 06:59 Intake Total 720 590 450 Output Total 701 2050 Balance 19 -1460 450 Weight 144.8 kg 146.6 kg Neck exam: PRESENT: other - Packing removed from right lateral posterior neck region. No drainage is noted. Wound has been repacked with Acticoat. Results Laboratory Results: 12/07/16 05:54 12/07/16 11:00 12/07/16 12/07/16 05:54 11:00 WBC 6.5 RBC 4.32 Hgb 10.5 L Hct 33.2 L MCV 77 L MCH 24.3 L MCHC 31.7 L RDW 15.7 H Plt Count 158 Creatinine 0.67 Est GFR ( Amer) > 60 Est GFR (Non-Af Amer) > 60 12/05/16 21:15 Neck - Abscess Gram Stain - Final Impressions: Chest X-Ray 12/05/16 15:40 IMPRESSION: NO ACUTE RADIOGRAPHIC FINDING IN THE CHEST. Assessment & Plan - Diagnosis (2) Cellulitis and abscess of trunk Is this a current diagnosis for this admission?: Yes - Plan Summary Plan Summary: Acticoat has been placed into the wound, which can be retained from 3-5 days. This will be continued as an outpatient until the wound heals. Patient can be discharged from a surgical standpoint.
--- NOTE | 2016-12-07 19:12 | RADIOLOGY REPORT (SQ) ---
EXAM DESCRIPTION: CTA CHEST COMPLETED DATE/TIME: 12/07/2016 7:01 pm REASON FOR STUDY: SOB/ DIFFICULTY BREATHING/pulmonary embolism COMPARISON: None. TECHNIQUE: CT scan of the chest performed using helical scanning technique with dynamic intravenous contrast injection. Images reviewed with lung, soft tissue and bone windows. Reconstructed coronal and sagittal MPR images reviewed. Additional 3 dimensional post-processing performed to develop Maximal Intensity Projection images (DC P). All images stored on PACS. All CT scanners at this facility use dose modulation, iterative reconstruction, and/or weight based d osing when appropriate to reduce radiation dose to as low as reasonably achievable (ALARA). [facility]: Dose Right [facility]: CareDose [facility]: Dose Right [facility]: Teradose 4D [facility]: GrabCAD CONTRAST TYPE AND DOSE: A 85 mL Isovue 370- low osmolar. RENAL FUNCTION: GFR > 60. RADIATION DOSE: 73.69 mGy. LIMITATIONS: None. FINDINGS: LUNGS AND PLEURA: Patchy nodular airspace disease within the right upper lobe and right lo wer lobe. Lungs and pleural spaces otherwise grossly clear. AORTA AND GREAT VESSELS: No aneurysm or dissection. HEART: Multichamber cardiomegaly in the setting of coronary artery calcifications. No pericardial ef fusion. PULMONARY ARTERIES: Enlarged pulmonary artery trunk measuring 3.5 cm in diameter. No emboli visualiz ed in the main pulmonary arteries or the segmental branches. HILAR AND MEDIASTINAL STRUCTURES: No identified masses or abnormal nodes. HARDWARE: None in the chest. UPPER ABDOMEN: Hepatomegaly in the setting of diffuse hepatic steatosis. No acute findings. THYROID AND OTHER SOFT TISSUES: No masses. No adenopathy. BONES: No acute or significant finding. 3D MIPS: Confirm above findings. OTHER: No other significant finding. IMPRESSION: NO PULMONARY EMBOLI. PATCHY NODULAR AIRSPACE DISEASE RIGHT UPPER LOBE AND RIGHT LOWER LOBE COMPONENT BALL WITH INFECTIOUS INFLAMMATORY PNEUMONITIS. ENLARGED PULMONARY ARTERY TRUNK SUGGESTIVE OF PULMONARY ARTERY HYPERTENSION. CORRELATE WITH ECHOCARD IOGRAM. 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 HEPATOMEGALY IN THE SETTING OF HEPATIC STEATOSIS. TECHNICAL DOCUMENTATION: JOB ID: [id number] Quality ID # [id number]: Final reports with documentation of one or more dose reduction techniques (e.g., Au tomated exposure control, adjustment of the mA and/or kV according to patient size, use of iterative reconstruction technique) 2010 [employer] All Rights Reserved
[2016-12-07] MEDS: SIMVASTATIN 10 MG TABLET PO SCH (21:20)
[2016-12-07] MEDS: ALPRAZOLAM 0.5 MG TABLET PO PRN (21:20)
[2016-12-08] MEDS: PIPERACILLIN SODIUM/TAZOBACTAM 3.375 GM in NORMAL SALINE 100 ML IV SCH ×3 (01:25→17:29)
[2016-12-08] MEDS: VANCOMYCIN HCL 1,500 MG in DEXTROSE 5%-WATER 250 ML IV SCH ×3 (02:31→17:29)
[2016-12-08] MEDS: LANSOPRAZOLE 30 MG TAB.RAP.DR PO SCH (06:14)
[2016-12-08] MEDS: ENOXAPARIN SODIUM INJ 40 MG/0.4 ML DISP.SYRIN SUBCUT SCH (08:21)
[2016-12-08] MEDS: GLIMEPIRIDE 4 MG TABLET PO SCH ×2 (08:21→16:02)
[2016-12-08] MEDS: INSULIN REG, HUMAN 100 UNIT/ML 3 ML VIAL (PYX) SUBCUT PRN ×4 (08:21→22:08)
[2016-12-08 10:11] LABS: CREATININE RESULT 0.57 mg/dL (0.52-1.25)
[2016-12-08] MEDS: METOPROLOL SUCCINATE 50 MG TAB.SR.24H PO SCH ×2 (10:29→22:09)
[2016-12-08] MEDS: LOSARTAN POTASSIUM 50 MG TABLET PO SCH (10:30)
[2016-12-08] MEDS: DOCUSATE SODIUM 100 MG CAPSULE PO SCH ×2 (10:30→17:29)
[2016-12-08] MEDS: BUDESONIDE/FORMOTEROL 160-4.5 MCG 60 PUFF/6 GM MDI IH SCH ×2 (10:31→22:08)
[2016-12-08] MEDS: ARIPIPRAZOLE 5 MG TABLET PO SCH (10:31)
--- NOTE | 2016-12-08 10:47 | PDOC PROGRESS REPORT ---
Subjective Progress Note for:: 12/08/16 Subjective:: Patient feels much better this morning. No PND orthopnea noted. No chest pain. No shortness of breath. Patient reports a lot of anxiety associated. Intake of Xanax help a lot. No nausea or vomiting or diarrhea. No chills or fever this time. Physical Exam Vital Signs: Temp Pulse Resp BP Pulse Ox 98.7 F 102 H 20 150/85 H 97 12/08/16 07:52 12/08/16 07:52 12/08/16 07:52 12/08/16 07:52 12/08/16 07:52 Intake & Output 12/07/16 12/08/16 12/09/16 06:59 06:59 06:59 Intake Total 590 1725 Output Total 2050 800 Balance -1460 925 Weight 146.6 kg 146.6 kg General appearance: PRESENT: no acute distress, cooperative, obese Head exam: PRESENT: normocephalic Eye exam: PRESENT: EOMI Mouth exam: PRESENT: moist, neck supple Neck exam: ABSENT: JVD Respiratory exam: PRESENT: clear to auscultation edilberto - Anteriorly bilateral. ABSENT: rhonchi, wheezes Cardiovascular exam: PRESENT: RRR. ABSENT: gallop GI/Abdominal exam: PRESENT: soft. ABSENT: distended - Obese, tenderness Extremities exam: PRESENT: other - Trace pretibial edema Neurological exam: PRESENT: alert, awake, oriented to person, oriented to place , oriented to time, oriented to situation Skin exam: PRESENT: dry, warm. ABSENT: cyanosis Results Laboratory Results: 12/07/16 05:54 12/08/16 09:43 12/07/16 12/08/16 11:00 09:43 Creatinine 0.67 0.57 Est GFR ( Amer) > 60 > 60 Est GFR (Non-Af Amer) > 60 > 60 12/05/16 21:15 Neck - Abscess Gram Stain - Final Impressions: Chest X-Ray 12/05/16 15:40 IMPRESSION: NO ACUTE RADIOGRAPHIC FINDING IN THE CHEST. Chest/Abdomen CTA 12/07/16 00:00 IMPRESSION: NO PULMONARY EMBOLI. PATCHY NODULAR AIRSPACE DISEASE RIGHT UPPER LOBE AND RIGHT LOWER LOBE COMPONENT BALL WITH INFECTIOUS INFLAMMATORY PNEUMONITIS. ENLARGED PULMONARY ARTERY TRUNK SUGGESTIVE OF PULMONARY ARTERY HYPERTENSION. CORRELATE WITH ECHOCARDIOGRAM. 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 HEPATOMEGALY IN THE SETTING OF HEPATIC STEATOSIS. Assessment & Plan - Diagnosis (1) Cellulitis and abscess of trunk Is this a current diagnosis for this admission?: Yes (2) Sepsis Qualifiers: Sepsis type: sepsis due to unspecified organism Qualified Code(s): A41.9 - Sepsis, unspecified organism Is this a current diagnosis for this admission?: Yes (3) Second degree sunburn Is this a current diagnosis for this admission?: Yes (4) Diabetes mellitus type 2 in obese Is this a current diagnosis for this admission?: Yes (5) Obstructive sleep apnea Is this a current diagnosis for this admission?: Yes (6) Essential hypertension Is this a current diagnosis for this admission?: Yes (7) GERD (gastroesophageal reflux disease) Qualifiers: Esophagitis presence: without esophagitis Qualified Code(s): K21.9 - Gastro-esophageal reflux disease without esophagitis Is this a current diagnosis for this admission?: Yes (8) Mild intermittent asthma Qualifiers: Asthma complication type: uncomplicated Qualified Code(s): J45.20 - Mild intermittent asthma, uncomplicated Is this a current diagnosis for this admission?: Yes (9) Depression Qualifiers: Depression Type: unspecified Qualified Code(s): F32.9 - Major depressive disorder, single episode, unspecified Is this a current diagnosis for this admission?: Yes - Time Time Spent with patient: 25-34 minutes - Plan Summary Plan Summary: Patient abnormal CT may have been related to IV hydration. Patient is a lot better after discontinuation of IV fluids. Heart rate improved as well with Xanax. We are going to continue current medication. Discontinue IV fluids. Increase activity. Give 1 dose of Lasix. If the patient continues to improve in the morning possibly can be discharged. Follow cultures.
[2016-12-08] MEDS ORDERED: FUROSEMIDE INJ/PF 40 MG/4 ML SDV IV ONE (12:00)
[2016-12-08] MEDS: SIMVASTATIN 10 MG TABLET PO SCH (22:08)
[2016-12-08] MEDS: ALPRAZOLAM 0.5 MG TABLET PO PRN (22:09)
--- NOTE | 2016-12-08 22:22 | PDOC PROGRESS REPORT ---
Subjective Progress Note for:: 12/08/16 Subjective:: Patient is sitting up in chair, looks well, and without complaint Physical Exam Vital Signs: Temp Pulse Resp BP Pulse Ox 98.8 F 112 H 19 149/79 H 94 12/08/16 19:44 12/08/16 19:44 12/08/16 19:44 12/08/16 19:44 12/08/16 19:44 Intake & Output 12/07/16 12/08/16 12/09/16 06:59 06:59 06:59 Intake Total 590 1725 2237 Output Total 2050 800 1400 Balance -1460 925 837 Weight 146.6 kg 146.6 kg Neck exam: PRESENT: other - Dressing on posterior neck remains intact. There is no drainage noted. Results Laboratory Results: 12/07/16 05:54 12/08/16 09:43 12/08/16 09:43 Creatinine 0.57 Est GFR ( Amer) > 60 Est GFR (Non-Af Amer) > 60 12/05/16 21:15 Neck - Abscess Gram Stain - Final Impressions: Chest X-Ray 12/05/16 15:40 IMPRESSION: NO ACUTE RADIOGRAPHIC FINDING IN THE CHEST. Chest/Abdomen CTA 12/07/16 00:00 IMPRESSION: NO PULMONARY EMBOLI. PATCHY NODULAR AIRSPACE DISEASE RIGHT UPPER LOBE AND RIGHT LOWER LOBE COMPONENT BALL WITH INFECTIOUS INFLAMMATORY PNEUMONITIS. ENLARGED PULMONARY ARTERY TRUNK SUGGESTIVE OF PULMONARY ARTERY HYPERTENSION. CORRELATE WITH ECHOCARDIOGRAM. 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 HEPATOMEGALY IN THE SETTING OF HEPATIC STEATOSIS. 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 I have explained the method of dressing changes with the Acticoat. Patient has been supplied with this product, and has been advised to change dressing every 3-5 days. Patient's will provide wound care. Patient is surgically clear for discharge in the a.m., and needs to follow-up with Dr. Nguyen in 7-10 days.
[2016-12-09] MEDS: PIPERACILLIN SODIUM/TAZOBACTAM 3.375 GM in NORMAL SALINE 100 ML IV SCH ×2 (01:12→09:15)
[2016-12-09] MEDS: VANCOMYCIN HCL 1,500 MG in DEXTROSE 5%-WATER 250 ML IV SCH ×2 (02:24→09:15)
[2016-12-09] MEDS: ACETAMINOPHEN 325 MG TABLET PO PRN (05:44)
[2016-12-09] MEDS: LANSOPRAZOLE 30 MG TAB.RAP.DR PO SCH (05:45)
[2016-12-09] MEDS: GLIMEPIRIDE 4 MG TABLET PO SCH (07:46)
[2016-12-09] MEDS: ENOXAPARIN SODIUM INJ 40 MG/0.4 ML DISP.SYRIN SUBCUT SCH (07:46)
[2016-12-09] MEDS: INSULIN REG, HUMAN 100 UNIT/ML 3 ML VIAL (PYX) SUBCUT PRN (07:47)
[2016-12-09] MEDS: METOPROLOL SUCCINATE 50 MG TAB.SR.24H PO SCH (09:08)
[2016-12-09] MEDS: BUDESONIDE/FORMOTEROL 160-4.5 MCG 60 PUFF/6 GM MDI IH SCH (09:08)
[2016-12-09] MEDS: ARIPIPRAZOLE 5 MG TABLET PO SCH (09:09)
[2016-12-09] MEDS: LOSARTAN POTASSIUM 50 MG TABLET PO SCH (09:09)
[2016-12-09] MEDS: DOCUSATE SODIUM 100 MG CAPSULE PO SCH (09:09)
--- NOTE | 2016-12-09 10:30 | PDOC DISCHARGE SUMMARY ---
General - Admit/Disc Date/PCP Admission Date/Primary Care Provider: 12/05/16 18:23 BERE CORTEZ MD Discharge Date: 12/09/16 - Discharge Diagnosis (1) Cellulitis and abscess of trunk Is this a current diagnosis for this admission?: Yes (2) Sepsis Is this a current diagnosis for this admission?: Yes (3) Second degree sunburn Is this a current diagnosis for this admission?: Yes (4) Diabetes mellitus type 2 in obese Is this a current diagnosis for this admission?: Yes (5) Obstructive sleep apnea Is this a current diagnosis for this admission?: Yes (6) Essential hypertension Is this a current diagnosis for this admission?: Yes (7) GERD (gastroesophageal reflux disease) Is this a current diagnosis for this admission?: Yes (8) Mild intermittent asthma Is this a current diagnosis for this admission?: Yes (9) Depression Is this a current diagnosis for this admission?: Yes (10) Pulmonary hypertension Is this a current diagnosis for this admission?: Yes - Additional Information Resuscitation Status: Full Code Discharge Diet: Cardiac - Low-fat low-salt, Diabetic - No concentrated sweets Discharge Activity: Activity As Tolerated, Balance Activity w/Rest Home Medications: Amlodipine Besylate [Norvasc 5 mg Tablet] 5 mg PO DAILY 07/31/11 Metformin HCl [Glucophage 500 mg Tablet] 1,000 mg PO BID 07/31/11 Simvastatin [Zocor 20 mg Tablet] 20 mg PO QHS 07/31/11 Losartan Potassium [Cozaar 25 mg Tablet] 100 mg PO DAILY 02/05/12 Ranitidine HCl [Zantac 300 mg Tablet] 300 mg PO QHS 02/05/12 Aripiprazole [Abilify 10 mg Tablet] 10 mg PO DAILY 12/05/16 Budesonide/Formoterol Fumarate [Symbicort HFA 160-4.5 mcg Inhaler 6 gm] 2 puff IH Q12 12/05/16 Canagliflozin [Invokana] 300 mg PO DAILY 12/05/16 Exenatide Microspheres [Bydureon Pen] 2 mg SQ Q7D 12/05/16 Glimepiride [Amaryl 4 mg Tablet] 4 mg PO BID 12/05/16 Insulin Degludec [Tresiba Flextouch U-100] 28 unit SQ QHS 12/05/16 Levalbuterol Tartrate [Xopenex Hfa] 1 - 2 puff IH 6XD PRN 12/05/16 Omeprazole 20 mg PO DAILY 12/05/16 Vilazodone Hydrochloride [Viibryd] 40 mg PO DAILY 12/05/16 Amox Tr/Potassium Clavulanate [Augmentin 875-125 mg Tablet] 1 tab PO BID #20 tablet 12/09/16 Metoprolol Succinate [Toprol Xl 50 mg Tab.sr] 100 mg PO Q12 #60 tab.sr.24h 12/09 Oxycodone HCl/Acetaminophen [Percocet 5-325 mg Tablet] 1 tab PO Q6H PRN #30 tablet 12/09/16 Additional Information: Dressings with anticoa every 2-5 days. Patient to continue home CPAP. History of Present Illness Patient complains of: Fever and chills History of Present Illness: ISABEL RICK is a 55 year old female, with history of diabetes presents to the hospital because of fever and chills of 1 day duration. Patient noted and knot on the back of her neck close to the shoulder on the left side about 4-5 days ago with associated pain and discomfort. 2 days prior to admission the size of the knot or induration increased. Patient was concerned therefore she went to the emergency room yesterday where an incision and drainage was performed but no significant fluid was obtained. The patient was discharged home on Bactrim and Keflex and upon waking up this morning the patient has more discomfort pain and swelling with associated chills and fever. The patient went back to the emergency room, lactic acid level was elevated, temperature of 102.1, redness reportedly increased. Patient was given vancomycin and Zosyn and was referred for admission. Patient denies any chest congestion or coughing, no diarrhea, no vaginal discharge or bleeding, no dysuria urgency or frequency. No other rash reported. Hospital Course Hospital Course: The patient was admitted to telemetry. The patient was continued on hydration with normal saline started in the emergency room. Broad-spectrum antibiotic was started including vancomycin and Zosyn. Surgery was consulted and incision and drainage with placement of drain was placed. Culture was performed on the blood which grew Staphylococcus auricularis only on one bottle out of 4 likely a contamination. Vancomycin was discontinued. Wound culture grew Peptostreptococcus. The patient's pain and discomfort significantly improved. Course was noted for tachycardia where a CT of the chest did not reveal any pulmonary embolism but did reveal infiltrates suggestive of vascular congestion likely from hydration that responded well with 1 dose of intravenous Lasix and discontinuation of her IV fluids. Course was also noted for uncontrolled and her beta-laurel hypertension was increased. Patient's blood pressure improved and the tachycardia normalized. Patient also reports a lot of anxiety where her antidepressant was resumed and Xanax placed and patient improved. The rest of the hospital stays essentially unremarkable. Surgical service educated the patient and the family on how to do dressing with anticoat every 3-5 days. Patient was advised to follow-up with surgical service in 1 week. Physical Exam Vital Signs: Temp Pulse Resp BP Pulse Ox 98.7 F 92 17 146/84 H 94 12/09/16 07:59 12/09/16 07:59 12/09/16 07:59 12/09/16 07:59 12/09/16 07:59 Intake & Output 12/08/16 12/09/16 12/10/16 06:59 06:59 06:59 Intake Total 1725 3912 Output Total 800 3000 Balance 925 912 Weight 146.6 kg 146.5 kg General appearance: PRESENT: no acute distress, cooperative, morbidly obese Head exam: PRESENT: normocephalic Eye exam: PRESENT: EOMI Mouth exam: PRESENT: moist, neck supple Neck exam: ABSENT: JVD Respiratory exam: PRESENT: clear to auscultation edilberto. ABSENT: rhonchi, wheezes Cardiovascular exam: PRESENT: RRR. ABSENT: gallop GI/Abdominal exam: PRESENT: soft. ABSENT: distended - Obese Extremities exam: ABSENT: pedal edema Neurological exam: PRESENT: alert, awake, oriented to person, oriented to place , oriented to time, oriented to situation Skin exam: PRESENT: dry, warm. ABSENT: cyanosis Results Laboratory Results: 12/07/16 05:54 12/08/16 09:43 12/05/16 21:15 Neck - Abscess Gram Stain - Final Impressions: Chest X-Ray 12/05/16 15:40 IMPRESSION: NO ACUTE RADIOGRAPHIC FINDING IN THE CHEST. Chest/Abdomen CTA 12/07/16 00:00 IMPRESSION: NO PULMONARY EMBOLI. PATCHY NODULAR AIRSPACE DISEASE RIGHT UPPER LOBE AND RIGHT LOWER LOBE COMPONENT BALL WITH INFECTIOUS INFLAMMATORY PNEUMONITIS. ENLARGED PULMONARY ARTERY TRUNK SUGGESTIVE OF PULMONARY ARTERY HYPERTENSION. CORRELATE WITH ECHOCARDIOGRAM. 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 HEPATOMEGALY IN THE SETTING OF HEPATIC STEATOSIS. Qualifiers PATEINT BEING DISCHARGED WITH ANY OF THE FOLLOWING DIAGNOSIS?: No Plan Discharge Plan: Follow-up with primary care physician in 1 week. Follow-up with Dr. Nguyen in 1 week. Patient also to follow-up with her primary residential construction instructor in [place] as scheduled. Time Spent: Less than 30 Minutes
[2016-12-09 10:54] VITALS: BP 131/68
== END 2016-12-09 11:58 | disposition home or self-care (01) | DRG 854 ==
LOC: ER 14:03 → UNDOADMIN 17:41 → EH 17:41 → 4N 19:00
PROC: 0W960ZZ Drainage of Neck, Open Approach (ICD-10-PCS; principal; 2016-12-05)
DX: A41.9 Sepsis, unspecified organism (principal); L03.221 Cellulitis of neck; L55.1 Sunburn of second degree; E11.9 Type 2 diabetes mellitus without complications; G47.33 Obstructive sleep apnea (adult) (pediatric); I10 Essential (primary) hypertension; K21.9 Gastro-esophageal reflux disease without esophagitis; J45.20 Mild intermittent asthma, uncomplicated; F32.9 Major depressive disorder, single episode, unspecified; I27.2 Other secondary pulmonary hypertension; Z79.899 Other long term (current) drug therapy; Z79.4 Long term (current) use of insulin; Z90.49 Acquired absence of other specified parts of digestive tract; Z88.8 Allergy status to other drugs, medicaments and biological substances
CPT/HCPCS: 36415; 71010; 71275; 80048; 80053; 80202; 81001; 82565; 82803; 82962; 83036; 83605; 84439; 84443; 85025; 85027; 85610; 87040; 87070; 87075; 87077; 87086; 87186; 87205; 93005; 93010; 96365; 96375; 99285; A6266; J1170; J1650; J1815; J1940; J2543; J3370; J3490; J7030; J7060

== ENCOUNTER 2018-01-13 17:34 | Emergency (ER) | payer MEDICARE, BC ==
[2018-01-13] MEDS ORDERED: ASPIRIN 81 MG TABLET, CHEWABLE PO ONE (18:04)
--- NOTE | 2018-01-13 18:07 | ER Document Report ---
ED Medical Screen (RME) - General Chief Complaint: Chest Pain Stated Complaint: CHEST PAIN Time Seen by Provider: 01/13/18 18:01 Notes: RAPID MEDICAL EVALUATION DISCLOSURE I have seen this patient as part of a Rapid Medical Evaluation and, if applicable, placed any initially appropriate orders. The patient will be seen and fully evaluated, including a full history and physical exam, by a provider ( in Main ED or Fast Track) when a room becomes available. 57F here w c/o midsternal non rad CP SOB lightheadness diaphoresis that started several days ago. Not worse w exertion or breathing. She has not tried anything for the symptoms. Denies any prior history of [place] PE DVT. EXAM CTAB RRR TRAVEL OUTSIDE OF THE [place] IN LAST 30 DAYS: No - Related Data Allergies/Adverse Reactions: fexofenadine HCl [From Juliette] Allergy (Severe, Verified 12/05/16 15:14) Hives, SOB bupropion HCl [From Wellbutrin] Allergy (Unknown, Verified 12/05/16 15:14) Past Medical History - Past Medical History Cardiac Medical History: Reports: Hx Hypercholesterolemia, Hx Hypertension Pulmonary Medical History: Reports: Hx Bronchitis Denies: Hx Tuberculosis Neurological Medical History: Endocrine Medical History: Reports: Hx Diabetes Mellitus Type 2 Renal/ Medical History: Denies: Hx Peritoneal Dialysis GI Medical History: Reports: Hx Gastroesophageal Reflux Disease Musculoskeltal Medical History: Reports Hx Arthritis Psychiatric Medical History: Reports: Hx Depression Past Surgical History: Reports: Hx Abdominal Surgery - GERNIA, Hx Cholecystectomy - January 2011, Hx Orthopedic Surgery - c5-c7, R wrist, low back surgery for discitis - Immunizations Hx Diphtheria, Pertussis, Tetanus Vaccination: No Physical Exam - Vital signs Vitals: Temp Pulse Resp BP Pulse Ox 98.7 F 85 18 153/74 H 96 01/13/18 17:54 01/13/18 17:54 01/13/18 17:54 01/13/18 17:54 01/13/18 17:54 Course - Vital Signs Vital signs: Temp Pulse Resp BP Pulse Ox 98.7 F 85 18 153/74 H 96 01/13/18 17:54 01/13/18 17:54 01/13/18 17:54 01/13/18 17:54 01/13/18 17:54 Doctor's Discharge - Discharge Referrals: BERE CORTEZ MD [Primary Care Provider] - Follow up as needed
[2018-01-13 19:01] LABS: ABSOLUTE BASOPHILS # (AUTO) 0.1 10^3/uL (0.0-0.2); ABSOLUTE EOSINOPHILS # (AUTO) 0.1 10^3/uL (0.0-0.6); ABSOLUTE LYMPHOCYTES (AUTO) 2.4 10^3/uL (0.5-4.7); ABSOLUTE MONOCYTES (AUTO) 0.7 10^3/uL (0.1-1.4); ABSOLUTE NEUT (AUTO) 6.2 10^3/uL (1.7-8.2); BASOPHILS % (AUTO) 0.9 % (0-2); EOSINOPHILS % (AUTO) 1.5 % (0-6); HEMATOCRIT 39.6 % (36.0-47.0); MEAN CORPUSCULAR HEMOGLOBIN 26.4 pg (27.0-33.4); MEAN CORPUSCULAR HGB CONC 32.9 g/dL (32.0-36.0); MEAN CORPUSCULAR VOLUME 81 fl (80-97); PLATELET COUNT 243 10^3/uL (150-450); RED BLOOD COUNT 4.93 10^6/uL (3.72-5.28); RED CELL DISTRIBUTION WIDTH 16.2 % (11.5-14.0); SEGMENTED NEUTROPHILS % (AUTO) 65.6 % (42-78); TOTAL CELLS COUNTED % (AUTO) 100 %; WHITE BLOOD COUNT 9.4 10^3/uL (4.0-10.5)
--- NOTE | 2018-01-13 19:04 | RADIOLOGY REPORT (SQ) ---
EXAM DESCRIPTION: CHEST 2 VIEWS COMPLETED DATE/TIME: 01/13/2018 6:45 pm REASON FOR STUDY: cp sob COMPARISON: 12/15/2014 EXAM PARAMETERS: NUMBER OF VIEWS: two views TECHNIQUE: Digital Frontal and Lateral radiographic views of the chest acquired. RADIATION DOSE: NA LIMITATIONS: none FINDINGS: LUNGS AND PLEURA: No opacities, masses or pneumothorax. No pleural effusion. MEDIASTINUM AND HILAR STRUCTURES: No masses or contour abnormalities. HEART AND VASCULAR STRUCTURES: Heart normal size. No evidence for failure. BONES: No acute findings. HARDWARE: None in the chest. OTHER: No other significant finding. IMPRESSION: NO ACUTE RADIOGRAPHIC FINDING IN THE CHEST. TECHNICAL DOCUMENTATION: JOB ID: [id number] [employer]- All Rights Reserved Reading location - IP/workstation name: [email or web address]
[2018-01-13 19:16] LABS: ALANINE AMINOTRANSFERASE 38 U/L (9-52); ALBUMIN 4.3 g/dL (3.5-5.0); ALKALINE PHOSPHATASE 83 U/L (38-126); ANION GAP 14 (5-19); ASPARTATE AMINO TRANSFERASE 22 U/L (14-36); BILIRUBIN,DIRECT 0.3 mg/dL (0.0-0.4); BILIRUBIN,TOTAL 0.3 mg/dL (0.2-1.3); BLOOD UREA NITROGEN 14 mg/dL (7-20); CARBON DIOXIDE 26 mmol/L (22-30); CHLORIDE 107 mmol/L (98-107); GLUCOSE 264 mg/dL (75-110); POTASSIUM 4.2 mmol/L (3.6-5.0); TOTAL PROTEIN 7.4 g/dL (6.3-8.2)
--- NOTE | 2018-01-13 20:22 | EKG REPORT ---
SEVERITY:- ABNORMAL ECG - SINUS RHYTHM LEFT ANTERIOR FASCICULAR BLOCK BORDERLINE R WAVE PROGRESSION, ANTERIOR LEADS : Confirmed by: Saira Lopez MD 13-Jan-2018 20:21:20
--- NOTE | 2018-01-13 21:07 | ER Document Report ---
ED General - General Chief Complaint: Chest Pain Stated Complaint: CHEST PAIN Time Seen by Provider: 01/13/18 18:01 Notes: Patient is a 57 year old female with a past medical history of hypertension, hyperlipidemia, morbid obesity, who presents with 2 days of stabbing chest pain. She states that this pain came on abruptly and has been constant since that time but does wax and wane in its intensity. Nothing seems to improve the pain. She notes breathing or moving worsens the pain. She does note associated shortness of breath. No history of DVT or pulmonary embolus. She and her at the bedside note that she has a history of similar pains in the past which have been evaluated with stress tests and no specific diagnosis other than possible chest wall inflammation. She has not seen her general doctor regarding today's concerns. She denies any associated diaphoresis or vomiting. She is concerned about possible left ankle swelling. She did recently drive from [place] to [place] and back. TRAVEL OUTSIDE OF THE [place] IN LAST 30 DAYS: No - Related Data Allergies/Adverse Reactions: fexofenadine HCl [From Juliette] Allergy (Severe, Verified 12/05/16 15:14) Hives, SOB bupropion HCl [From Wellbutrin] Allergy (Unknown, Verified 12/05/16 15:14) Past Medical History - General Information source: Patient - Social History Smoking Status: Never Smoker Chew tobacco use (# tins/day): No Frequency of alcohol use: None Drug Abuse: None Lives with: Spouse/Significant other Family History: CAD, DM, Hypertension Patient has suicidal ideation: No Patient has homicidal ideation: No - Past Medical History Cardiac Medical History: Reports: Hx Hypercholesterolemia, Hx Hypertension Pulmonary Medical History: Reports: Hx Bronchitis Denies: Hx Tuberculosis Neurological Medical History: Endocrine Medical History: Reports: Hx Diabetes Mellitus Type 2 Renal/ Medical History: Denies: Hx Peritoneal Dialysis GI Medical History: Reports: Hx Gastroesophageal Reflux Disease Musculoskeltal Medical History: Reports Hx Arthritis Psychiatric Medical History: Reports: Hx Depression Past Surgical History: Reports: Hx Abdominal Surgery - GERNIA, Hx Cholecystectomy - January 2011, Hx Orthopedic Surgery - c5-c7, R wrist, low back surgery for discitis - Immunizations Hx Diphtheria, Pertussis, Tetanus Vaccination: No Hx Pneumococcal Vaccination: 04/07/05 Review of Systems - Review of Systems Notes: Constitutional: Negative for fever. HENT: Negative for sore throat. Eyes: Negative for visual changes. Cardiovascular: Positive for chest pain. Respiratory: Positive for shortness of breath. Gastrointestinal: Negative for abdominal pain, vomiting or diarrhea. Genitourinary: Negative for dysuria. Musculoskeletal: Negative for back pain. Skin: Negative for rash. Neurological: Negative for headaches, weakness or numbness. 10 point ROS negative except as marked above and in HPI. Physical Exam - Vital signs Vitals: Temp Pulse Resp BP Pulse Ox 98.7 F 85 18 153/74 H 96 01/13/18 17:54 01/13/18 17:54 01/13/18 17:54 01/13/18 17:54 01/13/18 17:54 Interpretation: Hypertensive Notes: PHYSICAL EXAMINATION: GENERAL: Well-appearing, well-nourished and in no acute distress. HEAD: Atraumatic, normocephalic. EYES: Pupils equal round and reactive to light, extraocular movements intact, sclera anicteric, conjunctiva are normal. ENT: nares patent, oropharynx clear without exudates. Moist mucous membranes. NECK: Normal range of motion, supple without lymphadenopathy LUNGS: Breath sounds clear to auscultation bilaterally and equal. No wheezes rales or rhonchi. HEART: Regular rate and rhythm without murmurs Chest wall: Reproducibility of patient's reported pain on palpation of the central low sternum ABDOMEN: Soft, nontender, normoactive bowel sounds. No guarding, no rebound. No masses appreciated. EXTREMITIES: Normal range of motion, very mild edema to the left ankle. No cyanosis. NEUROLOGICAL: No focal neurological deficits. Moves all extremities spontaneously and on command. PSYCH: Normal mood, normal affect. SKIN: Warm, Dry, normal turgor, no rashes or lesions noted. Course - Re-evaluation Re-evalutation: 01/13/18 21:05 Presentation of chest pain in an otherwise well appearing patient. Low clinical suspicion for ACS given clinical history, exam, EKG without ST elevations or depressions, and negative initial troponin. HEART score less than or equal to 3. CXR without evidence of pneumothorax or pneumonia. No widened mediastinum. Aortic dissection also seems unlikely given history, symmetric pulses, CXR, and vitals. Main diagnostic considerations include a pulmonary embolus versus costochondritis. The pain is quite reproducible on exam, patient has very large breasts and often does not wear and appropriately supportive bra. Patient cannot be clinically cleared by a PERC or well's criteria as she does have some mild left lower extremity swelling although it is very minimally appreciated on exam. She also does complain of some pleuritic discomfort and her age is greater than 50. Will therefore proceed with a d-dimer with a preset cut off of 0.55 as it a positive test. 01/13/18 22:29 D-dimer is within acceptable limits. Patient's pain has improved. At this time will discharge with return precautions and follow-up recommendations. Verbal discharge instructions given a the bedside and opportunity for questions given. Medication warnings reviewed. Patient is in agreement with this plan and has verbalized understanding of return precautions and the need for primary care follow-up in the next 24-72 hours. - Vital Signs Vital signs: Temp Pulse Resp BP Pulse Ox 98.7 F 85 18 154/85 H 96 01/13/18 17:54 01/13/18 17:54 01/13/18 22:48 01/13/18 22:48 01/13/18 22:48 - Laboratory Result Diagrams: 01/13/18 18:25 01/13/18 18:25 Laboratory results interpreted by me: 01/13/18 01/13/18 18:25 18:25 MCH 26.4 L RDW 16.2 H Sodium 147.0 H Glucose 264 H - Diagnostic Test Radiology reviewed: Image reviewed, Reports reviewed Radiology results interpreted by me: 01/13/18 21:07 Chest x-ray: No acute infiltrate or pneumothorax - EKG Interpretation by Me Additional EKG results interpreted by me: 01/13/18 21:07 Sinus rhythm. Rate 88. No ST elevations or depressions. QTC is 431. Discharge - Discharge Clinical Impression: Chest wall pain, Costochondritis, acute Condition: Good Disposition: HOME, SELF-CARE Additional Instructions: You were seen today for chest pain. The exact cause of your pain is unclear but is likely due to inflammation of the chest wall. Take the naproxen that has been prescribed 500 mg twice daily for the next 1 week. Please take famotidine which can be purchased [id number] 20 mg daily while taking the naproxen to protect your stomach. Based on your cardiac enzyme testing, chest x -ray, and EKG it does not appear that it is from an immediately life- threatening cause at this time. Although your testing here is normal is critical that you follow-up with your primary care physician for continued evaluation of this chest pain and possible stress testing. I recommended you see your physician within the next 24-48 hours to be evaluated for consideration of a stress test. Please return to emergency department immediately if you have worsening of your chest pain, shortness of breath, vomiting, become unable to exert yourself due to pain or difficulty breathing, you pass out, or have any pain that radiates into your arms, jaw, or back. Please also return if you have any additional symptoms that are concerning to you. Prescriptions: Naproxen 500 mg PO BID #20 tablet Referrals: BERE CORTEZ MD [Primary Care Provider] - Follow up as needed
[2018-01-13] MEDS ORDERED: KETOROLAC TROMETHAMINE 60 MG/2 ML SDV IM ONE (22:29)
[2018-01-13] MEDS ORDERED: FAMOTIDINE 20 MG TABLET PO ONE (22:29)
[2018-01-13] MEDS ORDERED: LIDOCAINE 5% (700 MG) TRANSDERMAL ADH..PATCH TP ONE (22:29)
[2018-01-13 23:02] VITALS: BP 154/85
== END 2018-01-13 23:02 | disposition home or self-care (01) ==
LOC: ER 17:34
DX: M94.0 Chondrocostal junction syndrome [Tietze] (principal); R07.89 Other chest pain; I10 Essential (primary) hypertension; E78.5 Hyperlipidemia, unspecified; E66.01 Morbid (severe) obesity due to excess calories; R06.02 Shortness of breath; E11.9 Type 2 diabetes mellitus without complications
CPT/HCPCS: 93005; 99285; 96372; 36415; 85025; 80053; 84484; 85379; 71046; 93010; A9270 ×2; J1885

== ENCOUNTER → 2019-08-05 | Outpatient (CLI) | payer MEDICARE, BC ==
--- NOTE | 2019-08-05 10:00 | RADIOLOGY REPORT (SQ) ---
EXAM DESCRIPTION: CHEST PA/LATERAL COMPLETED DATE/TIME: 08/05/2019 9:35 am REASON FOR STUDY: MORBID (SEVERE) OBESITY DUE TO EXCESS CALORIES COMPARISON: 01/13/2018 EXAM PARAMETERS: NUMBER OF VIEWS: two views TECHNIQUE: Digital Frontal and Lateral radiographic views of the chest acquired. RADIATION DOSE: NA LIMITATIONS: none FINDINGS: LUNGS AND PLEURA: No opacities, masses or pneumothorax. No pleural effusion. Likely scatt ered calcified granuloma. MEDIASTINUM AND HILAR STRUCTURES: No masses or contour abnormalities. HEART AND VASCULAR STRUCTURES: Heart normal size. No evidence for failure. BONES: No acute findings. HARDWARE: Cervical fusion hardware, partially evaluated. OTHER: No other significant finding. IMPRESSION: NO SIGNIFICANT RADIOGRAPHIC FINDING IN THE CHEST. TECHNICAL DOCUMENTATION: JOB ID: [id number] [employer]- All Rights Reserved Reading location - IP/workstation name: [email or web address]
[2019-08-05 10:29] LABS: ABSOLUTE BASOPHILS # (AUTO) 0.1 10^3/uL (0.0-0.2); ABSOLUTE EOSINOPHILS # (AUTO) 0.2 10^3/uL (0.0-0.6); ABSOLUTE LYMPHOCYTES (AUTO) 1.8 10^3/uL (0.5-4.7); ABSOLUTE MONOCYTES (AUTO) 0.4 10^3/uL (0.1-1.4); ABSOLUTE NEUT (AUTO) 5.9 10^3/uL (1.7-8.2); BASOPHILS % (AUTO) 1.1 % (0-2); EOSINOPHILS % (AUTO) 2.6 % (0-6); HEMATOCRIT 38.3 % (36.0-47.0); HEMOGLOBIN 12.9 g/dL (12.0-15.5); LYMPHOCYTES % (AUTO) 21.1 % (13-45); MEAN CORPUSCULAR HEMOGLOBIN 27.5 pg (27.0-33.4); MEAN CORPUSCULAR HGB CONC 33.6 g/dL (32.0-36.0); MEAN CORPUSCULAR VOLUME 82 fl (80-97); PLATELET COUNT 201 10^3/uL (150-450); RED BLOOD COUNT 4.69 10^6/uL (3.72-5.28); RED CELL DISTRIBUTION WIDTH 15.3 % (11.5-14.0); SEGMENTED NEUTROPHILS % (AUTO) 70.2 % (42-78); TOTAL CELLS COUNTED % (AUTO) 100 %; WHITE BLOOD COUNT 8.4 10^3/uL (4.0-10.5)
[2019-08-05 10:50] LABS: ANION GAP 12 (5-19); BLOOD UREA NITROGEN 20 mg/dL (7-20); CARBON DIOXIDE 26 mmol/L (22-30); CHLORIDE 103 mmol/L (98-107); GLUCOSE 102 mg/dL (75-110); POTASSIUM 4.4 mmol/L (3.6-5.0)
--- NOTE | 2019-08-05 14:26 | EKG REPORT ---
SEVERITY:- BORDERLINE ECG - SINUS RHYTHM LEFT AXIS DEVIATION BORDERLINE T WAVE ABNORMALITIES : Confirmed by: Susanna Saucedo 05-Aug-2019 14:25:42
== END ==
LOC: OD 09:18
PROVIDERS: ATTEND Surgery
DX: Z01.810 Encounter for preprocedural cardiovascular examination (principal); Z01.812 Encounter for preprocedural laboratory examination; Z01.818 Encounter for other preprocedural examination; E11.9 Type 2 diabetes mellitus without complications; E66.01 Morbid (severe) obesity due to excess calories
CPT/HCPCS: 36415; 71046; 80048; 84443; 85025; 93005; 93010